=== PATIENT | female | born 1995 | race Caucasian/White ===

== ENCOUNTER 2017-08-20 13:46 | Emergency (ER) | payer BC ==
[2017-08-20 13:51] VITALS: BP 131/68
--- NOTE | 2017-08-20 13:53 | EDPHY ---
H & P Stated Complaint: SORE THROAT Time Seen by Provider: 08/20/17 13:52 HPI/ROS: HPI CHIEF COMPLAINT: Sore throat times 24 hr. HISTORY OF PRESENT ILLNESS: Patient very pleasant 22-year-old female she presents emergency room sore throat. She states she has had a sore throat for 24 hr. No fever. Denies trouble swallowing, denies change in phonation. She thinks she may have strep pharyngitis. Denies chills or rigors. Denies cough chest pain or shortness of breath. Past Medical History: No significant medical history Past Surgical History: No significant surgical history Social History: Denies drugs alcohol tobacco. [employer] student. Family History: Noncontributory ROS REVIEW OF SYSTEMS: A comprehensive 10 point review of systems is otherwise negative aside from elements mentioned in the history of present illness. Exam Constitutional appears well nontoxic triage nursing summary reviewed, vital signs reviewed, awake/alert. Eyes normal conjunctivae and sclera, EOMI, PERRLA. HENT posterior pharynx erythematous, tonsillar bed is not really inflamed however there is exudate present, uvula midline, no signs of Dennis's, moist mucus membranes, no epistaxis, neck supple/ no meningismus, no raccoon eyes. Respiratory clear to auscultation bilaterally, normal breath sounds, no respiratory distress, no wheezing. Cardiovascular rate normal, regular rhythm, no murmur, no edema, distal pulses normal. Gastrointestinal soft, non-tender, no rebound, no guarding, normal bowel sounds, no distension, no pulsatile mass. Genitourinary no CVA tenderness. Musculoskeletal no midline vertebral tenderness, full range of motion, no calf swelling, no tenderness of extremities, no meningismus, good pulses, neurovascularly intact. Skin pink, warm, & dry, no rash, skin atraumatic. Neurologic awake, alert and oriented x 3, AAOx3, moves all 4 extremities equally, motor intact, sensory intact, CN II-XII intact, normal cerebellar, normal vision, normal speech. Psychiatric normal mood/affect. Heme/Lymph/Immune no lymphadenopathy. Differential Diagnosis: Includes but is not limited to in a particular order viral pharyngitis, strep pharyngitis, Dennis's, SHIPPING ORDER CLERK, RPA Medical Decision Making: Plan for this patient patient appears well nontoxic no acute distress no evidence of RPA or SHIPPING ORDER CLERK or Dennis's on exam. Will treat for strep pharyngitis with azithromycin, Decadron. Recommend drinking lots of fluids stay well-hydrated. Return if worsening symptoms questions or concerns. She has no trouble swallowing. No change in phonation. Source: Patient - Personal History LMP (Females 10-55): 15-21 Days Ago Current Tetanus Diphtheria and Acellular Pertussis (TDAP): Yes - Medical/Surgical History Other PMH: DENIES - Social History Smoking Status: Never smoked Constitutional: Initial Vital Signs Temperature (C) 36.7 C 08/20/17 13:50 Heart Rate 91 08/20/17 13:50 Respiratory Rate 15 08/20/17 13:50 Blood Pressure 131/68 H 08/20/17 13:50 O2 Sat (%) 97 08/20/17 13:50 O2 Delivery Mode Room Air Allergies/Adverse Reactions: No Known Allergies Allergy (Unverified 08/20/17 13:49) Home Medications: Medication Instructions Recorded Azithromycin [Zithromax] 250 mg PO DAILY #6 tab 08/20/17 Dexamethasone [Decadron 4 MG (*)] 4 mg PO DAILY #4 tab 08/20/17 Departure - Departure Disposition: Home, Routine, Self-Care Clinical Impression: Strep pharyngitis Condition: Good Instructions: Strep Throat (ED) Additional Instructions: 1. Stay well-hydrated drink lots of fluids. 2. Antibiotics as prescribed. 3. Return emergency room if you have worsening symptoms questions or concerns. Referrals: NONE *PRIMARY CARE P,. [Primary Care Provider] - As per Instructions Prescriptions: Azithromycin [Zithromax] 250 mg PO DAILY #6 tab Dexamethasone [Decadron 4 MG (*)] 4 mg PO DAILY #4 tab
[2017-08-20] MEDS ORDERED: AZITHROMYCIN 250 MG TAB PO ONE (13:56)
[2017-08-20] MEDS: DEXAMETHASONE 4 MG TAB PO ONE ×2 (14:14→14:29)
[2017-08-20] MEDS: IBUPROFEN 800 MG TAB PO ONE ×2 (14:14→14:29)
== END 2017-08-20 14:37 | disposition home or self-care (01) ==
DX: J02.0 Streptococcal pharyngitis (principal)

== ENCOUNTER 2018-05-05 18:59 | Emergency (ER) | payer BC ==
[2018-05-05 19:07] VITALS: BP 120/88
--- NOTE | 2018-05-05 19:35 | EDPHY ---
H & P Stated Complaint: L sided R inj while snowboarding Time Seen by Provider: 05/05/18 19:33 HPI/ROS: CHIEF COMPLAINT: Chest wall injury HISTORY OF PRESENT ILLNESS: The patient presents to the ED with complaints of left-sided chest wall pain that began today after she struck herself while snowboarding. The patient did not hit her head or lose consciousness. She denies any neck pain, headache, numbness, weakness or abdominal pain. The patient does have some reproducible tenderness to palpation her left lower anterior rib cage. The patient is not anticoagulated. She denies additional past medical history. REVIEW OF SYSTEMS: A comprehensive 10 point review of systems is otherwise negative aside from elements mentioned in the history of present illness. Source: Patient - Personal History LMP (Females 10-55): 22-28 Days Ago Current Tetanus/Diphtheria Vaccine: Yes - Medical/Surgical History Hx Asthma: No Hx Chronic Respiratory Disease: No Hx Diabetes: No Hx Cardiac Disease: No Hx Renal Disease: No Hx Cirrhosis: No Hx Alcoholism: No Hx HIV/AIDS: No Hx Splenectomy or Spleen Trauma: No Other PMH: DENIES - Social History Smoking Status: Never smoked - Physical Exam Exam: General Appearance: Alert, no distress Head: Atraumatic Eyes: Pupils equal, round, reactive ENT, Mouth: No hemotympanum, no oral trauma Neck: Nontender, trachea midline Respiratory: Tenderness to palpation anterior left lower chest wall, no subcutaneous air, lungs clear bilaterally Cardiovascular: Regular rate and rhythm Abdomen: Abdomen is soft and nontender, pelvis stable Skin: No lacerations, No abrasion Back: No midline T/L/S pain Extremities: Nontender, full range of motion Neurological: A&Ox3, normal motor function, normal sensory exam Constitutional: Initial Vital Signs Temperature (C) 36.7 C 05/05/18 19:04 Heart Rate 90 05/05/18 19:04 Respiratory Rate 16 05/05/18 19:04 Blood Pressure 120/88 H 05/05/18 19:04 O2 Sat (%) 95 05/05/18 19:04 O2 Delivery Mode Room Air Allergies/Adverse Reactions: No Known Allergies Allergy (Verified 05/05/18 19:06) Home Medications: Medication Instructions Recorded NK [No Known Home Meds] 05/05/18 Medical Decision Making - Diagnostics Imaging Results: Chest x-ray PA/lateral: Images reviewed by myself. Impression negative for acute rib fracture, pneumothorax or other traumatic finding ED Course/Re-evaluation: The patient presents to the ED with complaints of acute rib pain following a accident skiing. The patient is noted to be hemodynamically stable. She does have tenderness on exam. Chest x-ray demonstrates no evidence of a radiographically apparent rib fracture or pneumothorax. The patient will be discharged home with rib injury aftercare instructions. She is advised to use ibuprofen as needed for pain. She is advised to return to the ED for markedly increasing pain, shortness of breath or other concerns. Differential Diagnosis: Differential diagnosis considered includes rib fracture, pneumothorax, hemothorax Departure - Departure Disposition: Home, Routine, Self-Care Clinical Impression: Contusion of chest wall Condition: Good Instructions: Musculoskeletal Pain (ED) Additional Instructions: 1. Take Ibuprofen or Motrin 600 mg by mouth three times a day. 2. Please return to the emergency department for any severe pain, difficulty breathing or other concerns.
== END 2018-05-05 20:19 | disposition home or self-care (01) ==
DX: S20.219A Contusion of unspecified front wall of thorax, initial encounter (principal); W22.8XXA Striking against or struck by other objects, initial encounter; Y93.23 Activity, snow (alpine) (downhill) skiing, snowboarding, sledding, tobogganing and snow tubing; Y92.828 Other wilderness area as the place of occurrence of the external cause; Y99.8 Other external cause status